=== PATIENT | female | born 2000 | race African-American/Black ===

== ENCOUNTER 2023-05-14 13:10 | Emergency (ER) | payer MEDICAID, SELFPAY ==
[2023-05-14 13:29] VITALS: BP 131/101; PULSE 83; RESP 16; TEMP 36.6; O2SAT 100
--- NOTE | 2023-05-14 13:38 | ED.NAVMDI ---
HPI - Nausea/Vomiting/Diarrhea General Chief complaint: Nausea/Vomiting/Diarrhea Stated complaint: n/v Time Seen by Provider: 05/14/23 13:18 Source: patient Mode of arrival: ambulatory Limitations: no limitations History of Present Illness HPI Narrative: 22 years old -[place] female presents with nausea and vomiting since last night. She denies any abdominal pain, diarrhea, fever, chills or urinary symptoms. Patient went to [facility], [place] last night for dental pain, received IM shot, and a prescription for antibiotic which she did not get yet. Related Data Allergies Allergy/AdvReac Type Severity Reaction Status Date / Time No Known Allergies Allergy Verified 05/14/23 13:28 Review of Systems Review of Systems: All systems reviewed & are unremarkable except as noted in HPI and below Exam Narrative: General appearance: Well-developed, well-nourished Skin: Normal color Head: Normocephalic, nontraumatic Eyes: Clear conjunctiva ENT: Right lower teeth dental decay Neck: Supple, nontender Chest and respiratory: Airway patent, no respiratory distress, no accessory muscle use Heart: Regular rate/rhythm Abdomen: Soft, nontender, no organomegaly, quiet bowel sounds Vascular: Normal peripheral pulses, normal capillary refill. Musculoskeletal: Normal range of motion, nontender back Neurologic: Alert and oriented ?3, GENERAL ENGINEER is normal as tested, no gross motor deficit Course Reevaluation(s) Reevaluation #1: Feeling much better after IV fluid and Zofran Date: 05/14/23 Time: 13:57 Reevaluation #2: Currently patient denied any nausea or feeling of vomiting, she is telling me that she is hungry and would like to go to eat. Patient is going back home/[place] in 3 days Date: 05/14/23 Time: 15:55 Consultations Consultation #1: Dr. Friedman Patient probably need to follow-up with quality process engineer or a certified income tax preparer. Date: 05/14/23 Time: 15:36 Consultation #2: dr louise As long as patient does not have any nausea or vomiting. Can go back home to follow-up with her family physician as soon as possible for further evaluation. Date: 05/14/23 Time: 15:36 Vital Signs Vital signs: Vital Signs Temperature 36.6 C 05/14/23 13:29 Pulse Rate 83 05/14/23 13:29 Respiratory Rate 16 05/14/23 13:29 Blood Pressure 131/101 H 05/14/23 13:29 Pulse Oximetry 100 05/14/23 13:29 Temperature 36.8 C 05/14/23 15:29 Pulse Rate 92 05/14/23 15:29 Respiratory Rate 16 05/14/23 15:29 Blood Pressure 138/92 H 05/14/23 15:29 Pulse Oximetry 98 05/14/23 15:29 MDM - Nausea/Vomiting/Diarrhea MDM Narrative Medical decision making narrative: Patient presents with nausea and vomiting over the last few hours prior to arrival to the emergency room. She denies anything else except some pain at the right lower teeth which did not get the antibiotic prescription filled yet. Physical examination was insignificant except for obese patient, with dental decay at the right lower teeth. Differential diagnosis as below. Work-up today showed normal WBC, potassium of 2.8, patient received 40 mill equivalent IV and 40 mEq orally prior to discharge, calcium 5.3, magnesium 1.2, patient received magnesium orally prior to discharge patient protein is 5.0, albumin 2.6. I did discuss the above findings with Dr. Friedman and Dr. Louise Who agreed that patient can follow-up with her family physician when she go back to [place] for further evaluation. As long as she is not actively vomiting at this time. Patient received 1 L of normal saline IV and Zofran IV, feeling much better and would like to go home as soon as possible. She is telling me that she is going b
[2023-05-14] MEDS: SODIUM CHLORIDE 0.9% IV 1,000 ML 999 ML IV CONT (13:41)
--- NOTE | 2023-05-14 13:42 | PC.NURSE ---
1 liter NS received was infusing when she arrived
[2023-05-14 14:05] LABS: Basophils Percent Auto 0.4 % (0.2-1.2); Eosinophils Absolute Auto 0.1 K/mm3 (0-0.3); Eosinophils Percent Auto 1.3 % (0-4.4); Hematocrit 39.3 % (37.0-47.0); Hemoglobin 12.4 g/dL (12.0-15.0); Immature Granulocyte Absolute 0.04 K/mm3 (0.00-0.031); Immature Granulocyte Percent A 0.4 % (0-0.5); Lymphocytes Absolute Auto 1.75 K/mm3 (0.9-3.2); Lymphocytes Percent Auto 18.8 % (18.3-44.2); Mean Corpuscular HGB Conc 31.6 g/dl (32-36); Mean Corpuscular Hemoglobin 25.8 pg (26-34); Mean Corpuscular Volume 81.9 fl (80-100); Mean Platelet Volume 9.9 fl (7.4-10.4); Monocytes Absolute Auto 0.7 K/mm3 (0.1-0.6); Monocytes Percent Auto 7.3 % (2.6-8.5); Neutrophils Absolute Auto 6.7 K/mm3 (1.3-6.7); Neutrophils Percent Auto 71.8 % (45.5-73.1); Platelet Count Result 262 k/mm3 (150-375); Red Cell Distribution Width 14.8 % (11.5-14.5); White Blood Count 9.3 K/mm3 (4.5-10.0)
[2023-05-14] MEDS: ONDANSETRON INJ 4 MG/2 ML VIAL IV PUSH (14:12)
[2023-05-14 14:17] LABS: Appearance Urine Clear (Clear); Bacteria Urine None Seen /hpf; Bilirubin Urine Negative (Negative); Blood Urine 3+ (Negative); Color Urine Yellow (Yellow); Glucose Urine UA Negative (Negative); Ketones Urine Negative (Negative); Leukocyte Esterase Ur Trace LEU/UL (Negative); Nitrate Urine Negative (Negative); Non Pathogenic Casts 0-2; Protein Urine 1+ mg/dL (Negative); Specific Grav Ur 1.014 (1.001-1.035); Squamous Epithelial Cell Urine Occasional /hpf (Few)
[2023-05-14 14:19] LABS: Add Urine Microscopic? YES
[2023-05-14 14:26] LABS: Alanine Aminotransferase 19 U/L (6-35); Albumin Level 2.6 g/dL (3.5-5.1); Alkaline Phosphatase 26 U/L (38-126); Anion Gap 3 mmol/L (8-16); Aspartate Amino Transferase 18 U/L (14-36); Bilirubin,Total 0.3 mg/dL (0.2-1.3); Blood Urea Nitrogen 6 mg/dL (7-17); Calcium 5.3 mg/dL (8.4-10.2); Carbon Dioxide 20 mmol/L (22-30); Chloride 118 mmol/L (98-107); Estimated CRCL calculation 277 ml/min; Estimated Glomerular Filt Rate > 60; Glucose 83 mg/dL (65-110); Potassium 2.8 mmol/L (3.4-5.0); Sodium 141 mmol/L (137-145)
[2023-05-14 14:30] VITALS: BP 136/88; PULSE 90; RESP 16; TEMP 36.8; O2SAT 99
--- NOTE | 2023-05-14 14:30 | ECG_ITS ---
Measurements Intervals [place] Rate: 91 P: 55 AR: 182 QRS: 32 QRSD: 79 T: 45 QT: 335 QTc: 412 Interpretive Statements SINUS RHYTHM NORMAL ELECTROCARDIOGRAM NO PREVIOUS ECG AVAILABLE FOR COMPARISON Electronically Signed On 05-14-2023 16:20:24 CDT by Frankie Herr M.D.
[2023-05-14 14:44] LABS: Magnesium 1.2 mg/dL (1.6-2.3)
[2023-05-14] MEDS: POTASSIUM CHLORIDE 20 MEQ PACKET (FOR LIQUID) 40 MEQ PO (15:00)
[2023-05-14 15:29] VITALS: BP 138/92; PULSE 92; RESP 16; TEMP 36.8; O2SAT 98
[2023-05-14] MEDS: MAGNESIUM OXIDE 400 MG TABLET PO (16:03)
== END 2023-05-14 16:10 | disposition home or self-care (01) ==
PROVIDERS: Emergency Provider Emergency Medicine
DX: E87.6 Hypokalemia (principal); E83.51 Hypocalcemia; E83.42 Hypomagnesemia; E77.8 Other disorders of glycoprotein metabolism; K04.7 Periapical abscess without sinus; R11.2 Nausea with vomiting, unspecified
CPT/HCPCS: 36415; 80053; 81001; 81025; 83735; 85025; 87086; 87088; 93005; 96374; 99284; A9270; J2405; J7030